=== PATIENT | female | born 1965 | race Caucasian/White ===

== ENCOUNTER → 2016-09-21 | Outpatient (CLI) | payer MEDICAID ==
[~2016-09-21] MED LIST: ALBU18HF INH; BUDE10.22 INH; FOLI-17 PO; LORA-446 PO; MULT-484 PO; OXYC5TAB3 PO; PANT20TA3 PO; SERT50TA PO; THIA100T6 PO; VENL75TA2 PO
== END | disposition home or self-care (01) ==
LOC: CFH 16:14
PROVIDERS: ATTEND Internal Medicine Pulmonary Disease
DX: R91.1 Solitary pulmonary nodule (principal); I25.10 Atherosclerotic heart disease of native coronary artery without angina pectoris
CPT/HCPCS: 71250

== ENCOUNTER 2017-06-07 03:08 | Inpatient (IN) | payer MEDICAID ==
[~2017-06-07] VITALS: Ht 165.1 cm; Wt 70.7 kg
[2017-06-07] MEDS ORDERED: NITROGLYCERIN SINGLE TAB 0.4 MG SL ONE (03:26)
[2017-06-07] MEDS ORDERED: NITROGLYCERIN SINGLE TAB 0.4 MG SL PRN (03:30)
[2017-06-07] MEDS ORDERED: SODIUM CHLORIDE FLUSH 10ML SYR IVF ONE (03:30)
[2017-06-07] MEDS ORDERED: ONDANSETRON 2MG/ML, 2ML IVPush ONE (03:30)
[2017-06-07] MEDS ORDERED: MORPHINE SULFATE 4 MG/ML, 1ML IVPush PRN (03:30)
[2017-06-07 03:54] LABS: BASOPHILS # (AUTO) 0.04 x10^3/uL (0-0.1); BASOPHILS % (AUTO) 1 % (0-1); EOSINOPHILS # (AUTO) 0.41 x10^3/uL (0-0.4); EOSINOPHILS % (AUTO) 6 % (1-7); LYMPHOCYTES % (AUTO) 39 % (22-44); MD NO; MEAN CORPUSCULAR HEMOGLOBIN 36.3 pg (27.0-34.8); MEAN CORPUSCULAR HGB CONC 34.3 g/dL (32.4-35.8); MEAN CORPUSCULAR VOLUME 105.9 fL (80-100); MEAN PLATELET VOLUME 7.7 fL (7.4-10.4); MONOCYTES # (AUTO) 0.37 x10^3/uL (0.2-0.8); MONOCYTES % (AUTO) 5 % (2-9); NEUTROPHILS # (AUTO) 3.33 x10^3/uL (1.8-6.8); NEUTROPHILS % (AUTO) 49 % (42-75); PLATELET COUNT 203 x10^3/uL (130-400); RED CELL DISTRIBUTION WIDTH 13.6 % (9.6-15.2)
[2017-06-07 03:58] LABS: INTERNATIONAL NORMALIZED RATIO 0.95 (0.93-1.1); PROTHROMBIN TIME 9.9 Seconds (9.6-11.5)
[2017-06-07 04:02] LABS: ALANINE AMINOTRANSFERASE 30 U/L (12-78); ALBUMIN 3.2 g/dL (3.4-5.0); ANION GAP 10 mmol/L (5-15); CALCIUM 7.9 mg/dL (8.5-10.1); CHLORIDE 100 mmol/L (98-107); CREATININE 0.65 mg/dL (0.55-1.02)
[2017-06-07 04:06] LABS: ALKALINE PHOSPHATASE 91 U/L (45-117); BILIRUBIN,TOTAL 0.3 mg/dL (0.2-1.0); TOTAL PROTEIN 7.1 g/dL (6.4-8.2); TROPONIN I < 0.015 ng/mL (0.000-0.045)
[2017-06-07] MEDS: SODIUM CHLORIDE 0.9% 1,000 ML IV SCH ×2 (05:55→15:36)
[2017-06-07] MEDS ORDERED: ACETAMINOPHEN 325 MG TABLET PO PRN (06:00)
[2017-06-07] MEDS ORDERED: OXYcodone IR 5MG TABLET PO PRN (06:00)
[2017-06-07] MEDS ORDERED: NICOTINE 7 MG/24 HR PATCH.TD24 TD SCH (06:00)
[2017-06-07] MEDS ORDERED: ALBUTEROL/IPRATROPIUM 2.5MG/0.5MG, 3 ML NPPB SCH (06:00)
[2017-06-07] MEDS ORDERED: POLYETHYLENE GLYCOL 17 GM PACKET PO PRN (06:00)
[2017-06-07] MEDS ORDERED: morphine SULFATE 10 MG/ML, 1ML IVPush PRN (06:00)
[2017-06-07] MEDS ORDERED: BISACODYL 10 MG SUPP PR PRN (06:00)
[2017-06-07] MEDS ORDERED: ASPIRIN 81 MG TABLET EC PO SCH (06:00)
[2017-06-07] MEDS ORDERED: hydrALAzine 20 MG/ML, 1ML IVPush PRN (06:00)
[2017-06-07] MEDS ORDERED: ENALAPRILAT 1.25 MG/ML, 2ML IVPush PRN (06:00)
[2017-06-07] MEDS: HEPARIN 5,000 UNITS/ML, 1ML SQ SCH ×2 (06:09→14:00)
[2017-06-07] MEDS: ONDANSETRON 2MG/ML, 2ML IVPush PRN ×2 (06:09→13:35)
[2017-06-07] MEDS: GABAPENTIN 100 MG CAPSULE PO SCH ×2 (06:09→14:49)
[2017-06-07 06:20] VITALS: BP 108/65
[2017-06-07 06:33] LABS: HEMOGLOBIN A1C 5.6 % (4.2-6.3)
[2017-06-07 06:40] LABS: FREE T4 (FREE THYROXINE) 0.79 ng/dL (0.76-1.46); THYROID STIMULATING HORMONE 2.93 mIU/L (0.358-3.740)
[2017-06-07 06:48] LABS: MICROSCOPIC NOT IND
[2017-06-07 06:50] LABS: CULTURE INDICATED? NO
[2017-06-07 06:53] LABS: AMPHETAMINE SCREEN, URINE Negative (Negative); BARBITURATE SCREEN, URINE Negative (Negative); BENZODIAZEPINE SCREEN, URINE Negative (Negative); CANNABINOID SCREEN, URINE Negative (Negative); COCAINE SCREEN, URINE Negative (Negative); METHADONE SCREEN, URINE Negative (Negative); OPIATE SCREEN, URINE Negative (Negative)
[2017-06-07] MEDS ORDERED: [UNRECOGNIZED DRUG - CODE] PO (06:57)
[2017-06-07 08:00] LABS: TROPONIN I < 0.015 ng/mL (0.000-0.045)
[2017-06-07] MEDS ORDERED: REGADENOSON 0.4 MG/5 ML SYRINGE ONE (08:50)
[2017-06-07] MEDS ORDERED: FOLIC ACID 1 MG TABLET PO SCH (09:00)
[2017-06-07] MEDS ORDERED: THIAMINE 100MG TABLET PO SCH (09:00)
[2017-06-07] MEDS ORDERED: SERTRALINE 50MG TABLET PO SCH (09:00)
[2017-06-07] MEDS ORDERED: ERGOCALCIFEROL 50,000 UNIT CAPSULE PO SCH (09:00)
[2017-06-07] MEDS ORDERED: FLUTICASONE/VILANTEROL 100-25MCG/INH INH SCH (09:00)
[2017-06-07] MEDS ORDERED: SENNA/DOCUSATE TABLET PO SCH (09:00)
[2017-06-07] MEDS ORDERED: MULTIVITAMINS/MINERALS TABLET PO SCH (09:00)
[2017-06-07] MEDS ORDERED: VENLAFAXINE 75 MG CAP ER PO SCH (09:00)
[2017-06-07] MEDS ORDERED: PANTOPRAZOLE 20MG TABLET PO SCH (09:00)
[2017-06-07 11:03] VITALS: BP 145/94
[2017-06-07 12:38] VITALS: BP 138/88
[2017-06-07 14:06] LABS: TROPONIN I < 0.015 ng/mL (0.000-0.045)
[2017-06-08] MEDS ORDERED: ALBUTEROL/IPRATROPIUM 2.5MG/0.5MG, 3 ML NPPB PRN (11:00)
== END 2017-06-07 15:57 | disposition home or self-care (01) | DRG 313 ==
LOC: ED 04:38 → EDIP 04:41 → 5SO 05:40 → DCLOUNGE 15:49
PROVIDERS: ADMIT Internal Medicine; ATTEND Internal Medicine
DX: R07.89 Other chest pain (principal); I25.2 Old myocardial infarction; E44.0 Moderate protein-calorie malnutrition; K86.0 Alcohol-induced chronic pancreatitis; D75.89 Other specified diseases of blood and blood-forming organs; F10.20 Alcohol dependence, uncomplicated; F17.200 Nicotine dependence, unspecified, uncomplicated; F32.9 Major depressive disorder, single episode, unspecified; J44.9 Chronic obstructive pulmonary disease, unspecified; K58.9 Irritable bowel syndrome, unspecified; M81.0 Age-related osteoporosis without current pathological fracture; Z68.25 Body mass index [BMI] 25.0-25.9, adult; Z79.82 Long term (current) use of aspirin; Z82.49 Family history of ischemic heart disease and other diseases of the circulatory system
CPT/HCPCS: 36415; 71045; 78452; 80053; 80307; 81003; 82306; 82607; 83036; 83690; 83735; 83880; 84439; 84443; 84484; 85025; 85610; 85730; 93005; 93017; 93306; 99285; J1644; J2405; J2785; A9502; C9898; J7030

== ENCOUNTER → 2017-07-02 | Outpatient (CLI) | payer MEDICAID ==
[~2017-07-02] MED LIST changes: +[UNRECOGNIZED DRUG - CODE] PO
== END | disposition home or self-care (01) ==
LOC: CFH 16:03
PROVIDERS: ATTEND Internal Medicine Gastroenterology
DX: K21.9 Gastro-esophageal reflux disease without esophagitis (principal); J45.909 Unspecified asthma, uncomplicated; F17.200 Nicotine dependence, unspecified, uncomplicated; R91.8 Other nonspecific abnormal finding of lung field
CPT/HCPCS: 71046

== ENCOUNTER → 2017-07-13 | Outpatient (CLI) | payer MEDICAID | LOC: EDSTATUS 06-24 10:30 → CFH 08:11 | PROVIDERS: ATTEND Internal Medicine | DX: Z13.820 Encounter for screening for osteoporosis (principal); M81.0 Age-related osteoporosis without current pathological fracture; N95.9 Unspecified menopausal and perimenopausal disorder | CPT/HCPCS: 77080 ==

== ENCOUNTER 2017-07-15 16:16 | Inpatient (IN) | payer MEDICAID ==
[~2017-07-15] VITALS: Ht 165.1 cm; Wt 68.8 kg
[2017-07-15] MEDS ORDERED: MAALOX/HYOSCYAMINE/LIDOCAINE 45 ML BTL PO ONE (16:30)
[2017-07-15] MEDS ORDERED: MAALOX/HYOSCYAMINE/LIDOCAINE 45 ML BTL ONE (16:43)
[2017-07-15] MEDS ORDERED: OMNIPAQUE 350 MG/ML, 150 ML BOTTLE ONE (17:36)
[2017-07-15] MEDS ORDERED: ZOLP-413 PO (19:40)
[2017-07-15 21:27] VITALS: BP 122/75
[2017-07-15 22:19] LABS: CLOSTRIDIUM DIFFICILE ANTIGEN NEGATIVE; CLOSTRIDIUM DIFFICILE TOXIN NEGATIVE (Negative)
[2017-07-15] MEDS ORDERED: ONDANSETRON 2MG/ML, 2ML IVPush PRN (23:00)
[2017-07-15] MEDS ORDERED: ALBUTEROL SULFATE 2.5 MG/3 ML NPPB PRN (23:00)
[2017-07-15] MEDS ORDERED: ACETAMINOPHEN 325 MG TABLET PO PRN (23:00)
[2017-07-15] MEDS ORDERED: morphine SULFATE 10 MG/ML, 1ML IVPush PRN (23:00)
[2017-07-15] MEDS ORDERED: hydrALAzine 20 MG/ML, 1ML IVPush PRN (23:00)
[2017-07-15] MEDS: SERTRALINE 50MG TABLET PO SCH (23:28)
[2017-07-15] MEDS: HEPARIN 5,000 UNITS/ML, 1ML SQ SCH (23:28)
[2017-07-15] MEDS: MAALOX/HYOSCYAMINE/LIDOCAINE 45 ML BTL PO PRN (23:30)
[2017-07-15] MEDS: ZOLPIDEM 5MG TABLET PO SCH (23:38)
[2017-07-15 23:59] LABS: BASOPHILS # (AUTO) 0.05 x10^3/uL (0-0.1); BASOPHILS % (AUTO) 1 % (0-1); EOSINOPHILS # (AUTO) 0.25 x10^3/uL (0-0.4); EOSINOPHILS % (AUTO) 3 % (1-7); LYMPHOCYTES # (AUTO) 1.59 x10^3/uL (1-3.4); LYMPHOCYTES % (AUTO) 20 % (22-44); MD NO; MEAN CORPUSCULAR HEMOGLOBIN 36.1 pg (27.0-34.8); MEAN CORPUSCULAR HGB CONC 33.7 g/dL (32.4-35.8); MEAN CORPUSCULAR VOLUME 106.9 fL (80-100); MONOCYTES # (AUTO) 0.83 x10^3/uL (0.2-0.8); MONOCYTES % (AUTO) 10 % (2-9); NEUTROPHILS # (AUTO) 5.28 x10^3/uL (1.8-6.8); NEUTROPHILS % (AUTO) 66 % (42-75); PLATELET COUNT 180 x10^3/uL (130-400); RED CELL DISTRIBUTION WIDTH 13.8 % (9.6-15.2)
[2017-07-16 00:08] LABS: ALANINE AMINOTRANSFERASE 28 U/L (12-78); ALBUMIN 3.3 g/dL (3.4-5.0); ANION GAP 11 mmol/L (5-15); CALCIUM 8.7 mg/dL (8.5-10.1); CHLORIDE 106 mmol/L (98-107); CREATININE 0.53 mg/dL (0.55-1.02)
[2017-07-16 00:11] LABS: ALKALINE PHOSPHATASE 74 U/L (45-117); BILIRUBIN,TOTAL 0.7 mg/dL (0.2-1.0); TOTAL PROTEIN 6.7 g/dL (6.4-8.2)
[2017-07-16 00:14] LABS: TROPONIN I < 0.015 ng/mL (0.000-0.045)
[2017-07-16] MEDS: D5%-0.45% NACL 1,000 ML IV SCH ×3 (01:02→21:16)
[2017-07-16 03:57] VITALS: BP 139/73
[2017-07-16 05:13] LABS: ALBUMIN 3.1 g/dL (3.4-5.0); CALCIUM 8.6 mg/dL (8.5-10.1); CHLORIDE 107 mmol/L (98-107)
[2017-07-16 05:16] LABS: BASOPHILS # (AUTO) 0.05 x10^3/uL (0-0.1); BASOPHILS % (AUTO) 1 % (0-1); EOSINOPHILS % (AUTO) 5 % (1-7); LYMPHOCYTES # (AUTO) 1.64 x10^3/uL (1-3.4); LYMPHOCYTES % (AUTO) 27 % (22-44); MD NO; MEAN CORPUSCULAR HEMOGLOBIN 36.5 pg (27.0-34.8); MEAN CORPUSCULAR HGB CONC 34.4 g/dL (32.4-35.8); MEAN CORPUSCULAR VOLUME 105.9 fL (80-100); MEAN PLATELET VOLUME 7.7 fL (7.4-10.4); MONOCYTES # (AUTO) 0.63 x10^3/uL (0.2-0.8); MONOCYTES % (AUTO) 10 % (2-9); NEUTROPHILS # (AUTO) 3.52 x10^3/uL (1.8-6.8); NEUTROPHILS % (AUTO) 57 % (42-75); PLATELET COUNT 178 x10^3/uL (130-400); RED BLOOD COUNT 3.73 x10^6/uL (3.82-5.3); RED CELL DISTRIBUTION WIDTH 13.9 % (9.6-15.2)
[2017-07-16 05:17] LABS: ALANINE AMINOTRANSFERASE 26 U/L (12-78); ALKALINE PHOSPHATASE 73 U/L (45-117); BILIRUBIN,TOTAL 0.7 mg/dL (0.2-1.0); CREATININE 0.56 mg/dL (0.55-1.02); TOTAL PROTEIN 6.5 g/dL (6.4-8.2)
[2017-07-16 05:23] LABS: TROPONIN I < 0.015 ng/mL (0.000-0.045)
[2017-07-16 06:12] LABS: ANION GAP 7 mmol/L (5-15)
[2017-07-16 07:10] VITALS: BP 138/81
[2017-07-16] MEDS: HEPARIN 5,000 UNITS/ML, 1ML SQ SCH ×3 (07:30→23:30)
[2017-07-16] MEDS ORDERED: SERTRALINE 50MG TABLET PO SCH (09:00)
[2017-07-16] MEDS: FLUTICASONE/VILANTEROL 100-25MCG/INH INH SCH (09:00)
[2017-07-16] MEDS: MAALOX/HYOSCYAMINE/LIDOCAINE 45 ML BTL PO PRN ×2 (09:38→17:15)
[2017-07-16] MEDS: PANTOPRAZOLE 40 MG IV IVPush SCH (09:43)
[2017-07-16 12:56] VITALS: BP 108/73
[2017-07-16 19:55] VITALS: BP 113/71
[2017-07-16] MEDS: ZOLPIDEM 5MG TABLET PO SCH ×2 (21:10→21:18)
[2017-07-16] MEDS: SERTRALINE 50MG TABLET PO SCH (21:15)
[2017-07-17 02:09] VITALS: BP 143/82
[2017-07-17] MEDS: MAALOX/HYOSCYAMINE/LIDOCAINE 45 ML BTL PO PRN ×2 (02:13→08:02)
[2017-07-17] MEDS: D5%-0.45% NACL 1,000 ML IV SCH (06:20)
[2017-07-17 07:29] VITALS: BP 141/100
[2017-07-17] MEDS: HEPARIN 5,000 UNITS/ML, 1ML SQ SCH (07:30)
[2017-07-17] MEDS: PANTOPRAZOLE 40 MG IV IVPush SCH (08:02)
[2017-07-17] MEDS: FLUTICASONE/VILANTEROL 100-25MCG/INH INH SCH (08:02)
== END 2017-07-17 09:45 | disposition home or self-care (01) | DRG 392 ==
LOC: ED 18:29 → OBSVTOIN 20:01 → EDIP 20:01 → 3NW 20:56
PROVIDERS: ADMIT Hospitalist; ATTEND Hospitalist
DX: R10.13 Epigastric pain (principal); K22.2 Esophageal obstruction; K86.0 Alcohol-induced chronic pancreatitis; F17.210 Nicotine dependence, cigarettes, uncomplicated; F41.9 Anxiety disorder, unspecified; J44.9 Chronic obstructive pulmonary disease, unspecified; K21.9 Gastro-esophageal reflux disease without esophagitis; K58.9 Irritable bowel syndrome, unspecified; Z66 Do not resuscitate; Z82.49 Family history of ischemic heart disease and other diseases of the circulatory system
CPT/HCPCS: 36415; 71045; 74220; 80053; 83690; 83735; 84100; 84484; 85025; 87324; 94640; 99285; J1644; J7613; Q9967; C9113

== ENCOUNTER 2018-06-13 16:36 | Emergency (ER) | payer MEDICAID ==
[~2018-06-13] VITALS: Ht 165.1 cm; Wt 66.3 kg
[~2018-06-13 16:36] MED LIST changes: -THIA100T6 PO; +THIA100T67 PO; +ZOLP-413 PO
--- NOTE | 2018-06-13 18:57 | NUR ---
185: PER REPORT FROM ENRIQUETA SERRANO AND ENRIQUETA ZAVALA PT. HAD JUST ARRIVED IN ROOM FROM [facility]. MULTIPLE C/O HIP PAIN, COREY, "BUMPS" TO BACK OF EAR. DR. FIGUEROA WAS AT BS TO EVAL PT. AND DISCUSS POC. CALL LIGHT IN REACH. CONTINUOUS PULSE OX AND B/P MONITORS PLACED. ALL SAFETY MEASURES OBSERVED.
[2018-06-13] MEDS ORDERED: OXYcodone/APAP 10/325MG TABLET PO ONE (19:00)
[2018-06-13] MEDS ORDERED: OXYcodone/APAP 10/325MG TABLET ONE (19:13)
[2018-06-13 19:53] VITALS: BP 104/75
== END 2018-06-13 19:54 | disposition home or self-care (01) ==
LOC: ED 19:45
DX: M54.32 Sciatica, left side (principal); J44.9 Chronic obstructive pulmonary disease, unspecified; M25.552 Pain in left hip
CPT/HCPCS: 99283

== ENCOUNTER 2018-06-22 23:22 | Emergency (ER) | payer MEDICAID ==
[~2018-06-22] VITALS: Ht 165.1 cm; Wt 66.1 kg
[2018-06-23] MEDS ORDERED: ONDANSETRON ODT 4 MG ONE (00:58)
[2018-06-23] MEDS ORDERED: KETOROLAC 30 MG/1 ML ONE (00:58)
[2018-06-23] MEDS ORDERED: ONDANSETRON ODT 4 MG PO ONE (01:00)
[2018-06-23] MEDS ORDERED: HYDROmorphone 1 MG/ML, 1ML ONE (01:00)
[2018-06-23] MEDS ORDERED: KETOROLAC 30 MG/1 ML IM ONE (01:00)
[2018-06-23] MEDS ORDERED: HYDROmorphone 2 MG/ML, 1ML IM ONE (01:00)
--- NOTE | 2018-06-23 01:12 | NUR ---
PT AMBULATED FROM LOBBY TO ROOM WITH STEADY GAIT. PT MEDICATED PER MAR FOR PAIN AND NAUSEA.
[2018-06-23 02:05] VITALS: BP 125/78
--- NOTE | 2018-06-23 02:05 | NUR ---
Patient given discharge instructions and they have confirmed that they understand the instructions. Patient ambulatory with steady gait.
== END 2018-06-23 02:07 | disposition home or self-care (01) ==
LOC: ED 06-23 00:29
DX: M54.32 Sciatica, left side (principal); J44.9 Chronic obstructive pulmonary disease, unspecified; Z87.19 Personal history of other diseases of the digestive system
CPT/HCPCS: 96372; 99283; J1170; J1885; Q0162

== ENCOUNTER 2018-07-10 05:01 | Emergency (ER) | payer MEDICAID ==
[~2018-07-10] VITALS: Ht 165.1 cm; Wt 66.5 kg
--- NOTE | 2018-07-10 06:22 | NUR ---
PA AT BEDSIDE FOR ASSESSMENT.
[2018-07-10 06:24] VITALS: BP 121/70
== END 2018-07-10 06:33 | disposition home or self-care (01) ==
LOC: ED 06:22
DX: M35.2 Behcet's disease (principal); J44.9 Chronic obstructive pulmonary disease, unspecified
CPT/HCPCS: 99283

== ENCOUNTER → 2018-08-22 | Outpatient (CLI) | payer MEDICAID | END | disposition home or self-care (01) | LOC: CVU 07:18 | PROVIDERS: ATTEND Internal Medicine | DX: I70.293 Other atherosclerosis of native arteries of extremities, bilateral legs (principal); F17.210 Nicotine dependence, cigarettes, uncomplicated | CPT/HCPCS: 93922; 93925 ==

== ENCOUNTER 2019-09-06 07:37 | Emergency (ER) | payer MEDICAID ==
[~2019-09-06] VITALS: Ht 165.1 cm; Wt 66.5 kg
--- NOTE | 2019-09-06 08:13 | NUR ---
PT CAME IN CO OF COUGH AND "LOW BP". SAID HER BP WAS "115/42" AT HOME. PT ALSO STATES SHE IS ON ROUND 3 OF ZITHROMAX WHICH HASNT BEEN HELPINGHER COUGH. COVID SWABBED YESTERDAY.
--- NOTE | 2019-09-06 08:31 | NUR ---
PROVIDER HAS YET TO SEE. CHARGE NURSE NOTIFIED
--- NOTE | 2019-09-06 08:59 | NUR ---
PT AMBULATED WITH STEADY GATE TO BATHROOM
[2019-09-06 09:42] LABS: BASOPHILS # (AUTO) 0.04 x10^3/uL (0-0.1); BASOPHILS % (AUTO) 1 % (0-1); EOSINOPHILS # (AUTO) 0.02 x10^3/uL (0-0.4); EOSINOPHILS % (AUTO) 0 % (1-7); LYMPHOCYTES # (AUTO) 2.69 x10^3/uL (1-3.4); LYMPHOCYTES % (AUTO) 36 % (22-44); MD NO; MEAN CORPUSCULAR HEMOGLOBIN 37.5 pg (27.0-34.8); MEAN CORPUSCULAR HGB CONC 34.1 g/dL (32.4-35.8); MEAN CORPUSCULAR VOLUME 109.8 fL (80-100); MEAN PLATELET VOLUME 7.2 fL (7.4-10.4); MONOCYTES # (AUTO) 0.87 x10^3/uL (0.2-0.8); MONOCYTES % (AUTO) 12 % (2-9); NEUTROPHILS # (AUTO) 3.78 x10^3/uL (1.8-6.8); NEUTROPHILS % (AUTO) 51 % (42-75); PLATELET COUNT 126 x10^3/uL (130-400); RED BLOOD COUNT 3.62 x10^6/uL (3.82-5.3); RED CELL DISTRIBUTION WIDTH 15.9 % (9.6-15.2)
[2019-09-06 09:53] LABS: ALBUMIN 3.5 g/dL (3.4-5.0); ANION GAP 10 mmol/L (5-15); CALCIUM 9.1 mg/dL (8.5-10.1); CHLORIDE 107 mmol/L (98-107); CREATININE 0.65 mg/dL (0.55-1.02)
[2019-09-06 10:33] VITALS: BP 103/55
--- NOTE | 2019-09-06 10:33 | NUR ---
PT UP FOR RECHECK. PT RESTING IN [facility]. NAD. VSS.
== END 2019-09-06 11:01 | disposition home or self-care (01) ==
LOC: ED 08:04
DX: J45.41 Moderate persistent asthma with (acute) exacerbation (principal); M19.90 Unspecified osteoarthritis, unspecified site; F17.200 Nicotine dependence, unspecified, uncomplicated
CPT/HCPCS: 36415; 71045; 80048; 82040; 85025; 93005; 99285

== ENCOUNTER 2019-10-23 16:10 | Emergency (ER) | payer MEDICAID ==
[~2019-10-23] VITALS: Ht 165.1 cm; Wt 63.8 kg
--- NOTE | 2019-10-23 16:32 | NUR ---
TASK RN: PT AMBULATORY TO ROOM FROM [facility], C/O INCREASING SOB OVER PAST WEEK WITH FEVER OF 102. HX OF COPD ASTHMA AND STATES THAT HER INH AND NEBS HAVE NOT BEEN HELPING. PT ON ALL MONITORS, VSS AND NAD NOTED. PT ABLE TO CARRY ON CONVERSATION WITH THIS RN WITH NO S/S OF SOB. CALL LIGHT W/I REACH. AWAITING PROVIDER EVAL.
[2019-10-23] MEDS ORDERED: ALBUTEROL/IPRATROPIUM 2.5MG/0.5MG, 3 ML NPPB ONE (17:00)
[2019-10-23] MEDS ORDERED: ALBUTEROL/IPRATROPIUM 2.5MG/0.5MG, 3 ML ONE (17:08)
--- NOTE | 2019-10-23 17:16 | NUR ---
BREATHING TREATMENT SET UP FOR PT. RESP EVEN AND UNLABORED, VSS, NADN.
[2019-10-23 17:41] VITALS: BP 105/71
--- NOTE | 2019-10-23 17:47 | NUR ---
PT REPORTS RELIEF OF SOB AFTER BREATHING TREATMENT.
--- NOTE | 2019-10-23 18:01 | NUR ---
Patient given discharge instructions and they have confirmed that they understand the instructions. Patient ambulatory with steady gait.
== END 2019-10-23 18:02 | disposition home or self-care (01) ==
LOC: ED 17:49
DX: J44.1 Chronic obstructive pulmonary disease with (acute) exacerbation (principal); J45.909 Unspecified asthma, uncomplicated; M19.90 Unspecified osteoarthritis, unspecified site
CPT/HCPCS: 71045; 94640; 99283; J7512

== ENCOUNTER 2019-11-19 15:33 | Emergency (ER) | payer MEDICAID ==
[~2019-11-19] VITALS: Ht 165.1 cm; Wt 74.0 kg
[2019-11-19 15:37] VITALS: BP 124/82
--- NOTE | 2019-11-19 16:04 | NUR ---
recall feature used to extract pt history as pt refuses to answer any past medical hx. pt states "i have tummy issues and you can call my gi doctor to find out specifics." pt states she is here for nausea and vomiting for the past "week or so". denies any abd pain. last bm 2 days ago described as hard pt states " it really hurt my hiney" pt in room placed on o2 and nibp monitoring. awaiting md fisher.
[2019-11-19 17:03] LABS: MEAN CORPUSCULAR HEMOGLOBIN 37.5 pg (27.0-34.8); MEAN CORPUSCULAR HGB CONC 33.8 g/dL (32.4-35.8); MEAN CORPUSCULAR VOLUME 111.1 fL (80-100); MEAN PLATELET VOLUME 7.5 fL (7.4-10.4); PLATELET COUNT 275 x10^3/uL (130-400); RED BLOOD COUNT 3.41 x10^6/uL (3.82-5.3); RED CELL DISTRIBUTION WIDTH 14.3 % (9.6-15.2)
[2019-11-19 17:12] LABS: ALANINE AMINOTRANSFERASE 47 U/L (12-78); ALBUMIN 3.1 g/dL (3.4-5.0); ANION GAP 8 mmol/L (5-15); CALCIUM 8.5 mg/dL (8.5-10.1); CHLORIDE 107 mmol/L (98-107); CREATININE 0.55 mg/dL (0.55-1.02)
[2019-11-19 17:14] LABS: ALKALINE PHOSPHATASE 79 U/L (45-117); BILIRUBIN,TOTAL 0.2 mg/dL (0.2-1.0); TOTAL PROTEIN 6.7 g/dL (6.4-8.2)
[2019-11-19 17:26] LABS: MICROSCOPIC NOT IND
[2019-11-19] MEDS ORDERED: OMNIPAQUE 350 MG/ML, 100ML BOTTLE ONE (17:48)
[2019-11-19 18:02] LABS: BASOPHILS # (AUTO) 0.09 x10^3/uL (0-0.1); BASOPHILS % (AUTO) 2 % (0-1); EOSINOPHILS # (AUTO) 0.22 x10^3/uL (0-0.4); EOSINOPHILS % (AUTO) 5 % (1-7); LYMPHOCYTES # (AUTO) 2.18 x10^3/uL (1-3.4); LYMPHOCYTES % (AUTO) 47 % (22-44); MD SCAN; MONOCYTES # (AUTO) 0.78 x10^3/uL (0.2-0.8); MONOCYTES % (AUTO) 17 % (2-9); NEUTROPHILS # (AUTO) 1.32 x10^3/uL (1.8-6.8); NEUTROPHILS % (AUTO) 29 % (42-75)
== END 2019-11-19 18:37 | disposition home or self-care (01) ==
LOC: ED 17:11
DX: K85.20 Alcohol induced acute pancreatitis without necrosis or infection (principal); R11.0 Nausea; R10.31 Right lower quadrant pain; J44.9 Chronic obstructive pulmonary disease, unspecified; K21.9 Gastro-esophageal reflux disease without esophagitis
CPT/HCPCS: 36415; 74177; 80053; 81003; 83690; 85025; 99285; Q9967

== ENCOUNTER 2020-02-21 03:26 | Emergency (ER) | payer MEDICAID ==
[~2020-02-21] VITALS: Ht 165.1 cm; Wt 62.9 kg
[~2020-02-21 03:26] MED LIST changes: -PANT20TA3 PO; +PANT20TA4 PO
[2020-02-21 03:33] VITALS: BP 134/75
[2020-02-21] MEDS ORDERED: SODIUM CHLORIDE 0.9% 1,000ML IVBOLUS ONE (04:00)
[2020-02-21] MEDS ORDERED: SODIUM CHLORIDE FLUSH 10ML SYR IVF ONE (04:00)
[2020-02-21 04:27] LABS: BASOPHILS % (AUTO) 2 % (0-1); EOSINOPHILS % (AUTO) 3 % (1-7); LYMPHOCYTES % (AUTO) 52 % (22-44); MEAN CORPUSCULAR HGB CONC 34.8 g/dL (32.4-35.8); MEAN PLATELET VOLUME 7.4 fL (7.4-10.4); MONOCYTES % (AUTO) 8 % (2-9); NEUTROPHILS % (AUTO) 35 % (42-75); PLATELET COUNT 124 x10^3/uL (130-400); RED BLOOD COUNT 3.71 x10^6/uL (3.82-5.3); RED CELL DISTRIBUTION WIDTH 14.7 % (9.6-15.2)
[2020-02-21 04:28] LABS: ALANINE AMINOTRANSFERASE 101 U/L (12-78); ALBUMIN 3.4 g/dL (3.4-5.0); ANION GAP 8 mmol/L (5-15); CALCIUM 8.6 mg/dL (8.5-10.1); CHLORIDE 106 mmol/L (98-107); CREATININE 0.55 mg/dL (0.55-1.02)
[2020-02-21 04:30] LABS: ALKALINE PHOSPHATASE 121 U/L (45-117); BILIRUBIN,TOTAL 0.5 mg/dL (0.2-1.0); TOTAL PROTEIN 7.2 g/dL (6.4-8.2)
[2020-02-21 04:50] LABS: AMPHETAMINE SCREEN, URINE Negative (Negative); BARBITURATE SCREEN, URINE Negative (Negative); BENZODIAZEPINE SCREEN, URINE Negative (Negative); CANNABINOID SCREEN, URINE Negative (Negative); COCAINE SCREEN, URINE Negative (Negative); METHADONE SCREEN, URINE Negative (Negative); OPIATE SCREEN, URINE Negative (Negative)
[2020-02-21 05:04] LABS: MD SCAN
--- NOTE | 2020-02-21 05:13 | NUR ---
job specification writer went to go recheck patient, patient had ripped out IV and was dressed. Patient stated that she "just wasnt happy with the care here and wanted to check herself out and didn't want to wait for her test results." Pt then walked out of the ER. Provider aware.
== END 2020-02-21 05:19 | disposition left against medical advice (07) ==
LOC: ED 05:00
DX: B34.9 Viral infection, unspecified (principal); R11.2 Nausea with vomiting, unspecified; R94.31 Abnormal electrocardiogram [ECG] [EKG]; R10.9 Unspecified abdominal pain; R50.9 Fever, unspecified; J44.9 Chronic obstructive pulmonary disease, unspecified
CPT/HCPCS: 36415; 71045; 80053; 80307; 83690; 85025; 93005; 96360; 99285; J7030

== ENCOUNTER 2020-05-23 19:19 | Emergency (ER) | payer MEDICAID ==
[~2020-05-23] VITALS: Ht 165.1 cm; Wt 60.8 kg
[2020-05-23] MEDS ORDERED: ONDANSETRON 2MG/ML, 2ML ONE (19:55)
[2020-05-23] MEDS ORDERED: MORPHINE SULFATE 4 MG/ML, 1ML ONE ×2 (19:55→20:38)
[2020-05-23] MEDS: MORPHINE SULFATE 4 MG/ML, 1ML IVPush PRN ×2 (19:58→20:39)
[2020-05-23] MEDS ORDERED: SODIUM CHLORIDE 0.9% 1,000ML IVBOLUS ONE (20:00)
[2020-05-23] MEDS ORDERED: ONDANSETRON 2MG/ML, 2ML IVPush ONE (20:00)
[2020-05-23] MEDS ORDERED: SODIUM CHLORIDE FLUSH 10ML SYR IVF ONE (20:00)
[2020-05-23 20:30] LABS: ALANINE AMINOTRANSFERASE 47 U/L (12-78); ALBUMIN 3.3 g/dL (3.4-5.0); ANION GAP 9 mmol/L (5-15); CHLORIDE 109 mmol/L (98-107); CREATININE 0.58 mg/dL (0.55-1.02)
--- NOTE | 2020-05-23 20:30 | NUR ---
PT C/O OF PERSISTENT PAIN AND MINIMAL RELIEF FROM ACID POLYMERIZATION OPERATOR, PT REQUESTING ADDITIONAL PAIN MEDICATION. MEDICATED PER EMAR. PT DENIES ANY ADDITIONAL NEEDS AT THIS TIME. CALL LIGHT AND PERSONAL BELONGINGS WITHIN REACH.
[2020-05-23 20:33] LABS: ALKALINE PHOSPHATASE 95 U/L (45-117); BILIRUBIN,TOTAL 0.3 mg/dL (0.2-1.0); TOTAL PROTEIN 7.4 g/dL (6.4-8.2)
[2020-05-23 20:34] LABS: MEAN CORPUSCULAR HGB CONC 34.7 g/dL (32.4-35.8); PLATELET COUNT 120 x10^3/uL (130-400); RED BLOOD COUNT 3.59 x10^6/uL (3.82-5.3)
--- NOTE | 2020-05-23 20:50 | NUR ---
PT TO CT
[2020-05-23] MEDS ORDERED: DOCU100C33 PO (20:59)
[2020-05-23] MEDS ORDERED: METH750T2 PO (20:59)
[2020-05-23] MEDS ORDERED: ATOR20TA37 PO (20:59)
[2020-05-23] MEDS ORDERED: BACL20TA PO (20:59)
[2020-05-23] MEDS ORDERED: PARO40TA3 PO (20:59)
[2020-05-23 21:01] LABS: MD YES
--- NOTE | 2020-05-23 21:02 | NUR ---
PT RETURNED FROM CT, OT SITTING UPRIGHT ON ON CLARE [place], VSS. PT DENIES ANY NEEDS AT THIS TIME AND REPORTS "SOME DECREASE IN PAIN" FOLLOWING SHOE PACKER.
[2020-05-23] MEDS ORDERED: OMNIPAQUE 350 MG/ML, 100ML BOTTLE ONE (21:03)
[2020-05-23 21:05] LABS: EOS#(MANUAL) 0.54 x10^3/uL (0.0-0.4); EOS% (MANUAL) 9 % (1-7); LYMPH#(MANUAL) 2.82 x10^3/uL (1-3.4); LYMPHS% (MANUAL) 47 % (22-44); MONOS#(MANUAL) 0.42 x10^3/uL (0.3-2.7); MONOS% (MANUAL) 7 % (2-9); SEG#(MANUAL) 2.22 x10^3/uL (1.8-6.8); SEGS% (MANUAL) 37 % (42-75)
[2020-05-23 21:08] LABS: <PLATELET ESTIMATE> DECREASED; <PLT MORPHOLOGY> NORMAL PLT MORPH
[2020-05-23 21:35] VITALS: BP 124/72
--- NOTE | 2020-05-23 21:36 | NUR ---
Patient given discharge instructions and they have confirmed that they understand the instructions. Patient ambulatory with steady gait.
== END 2020-05-23 21:37 | disposition home or self-care (01) ==
LOC: ED 20:30
DX: K59.00 Constipation, unspecified (principal); R10.84 Generalized abdominal pain; R11.2 Nausea with vomiting, unspecified; R53.83 Other fatigue; R00.0 Tachycardia, unspecified; J44.9 Chronic obstructive pulmonary disease, unspecified
CPT/HCPCS: 36415; 74177; 80053; 83690; 85025; 93005; 96361; 96374; 96375; 96376; 99285; J2270; J2405; J7030; Q9967

== ENCOUNTER → 2020-08-09 | Outpatient (CLI) | payer MEDICAID ==
[~2020-08-09] MED LIST changes: +ATOR20TA37 PO; +BACL20TA PO; +DOCU100C33 PO; -FOLI-17 PO; +FOLI1TAB32 PO; +METH-640 PO; -OXYC5TAB3 PO; +OXYC5TAB98 PO; +PARO40TA3 PO
== END | disposition home or self-care (01) ==
LOC: RAD 22:08
PROVIDERS: ATTEND Family Medicine
DX: M47.812 Spondylosis without myelopathy or radiculopathy, cervical region (principal); M19.012 Primary osteoarthritis, left shoulder; M25.78 Osteophyte, vertebrae
CPT/HCPCS: 72050

== ENCOUNTER 2020-11-29 13:08 | Emergency (ER) | payer SELFPAY ==
[~2020-11-29] VITALS: Ht 165.1 cm; Wt 62.0 kg
--- NOTE | 2020-11-29 13:50 | NUR ---
FIRST CONTACT: PT REPORTS GLF RESULTING IN PAIN TO Pam LYLES. PT ALSO EXPRESSES CONCERN OVER INCREASED SOB. PT TACHY CARDIC. PT TO ROOM ROOM WITH STEADY GAIT. ATTACHED TO MONITORS. CLARE. AWAITING ORDERS.
[2020-11-29 13:53] LABS: BASOPHILS % (AUTO) 1 % (0-1); EOSINOPHILS % (AUTO) 3 % (1-7); LYMPHOCYTES % (AUTO) 51 % (22-44); MEAN CORPUSCULAR HEMOGLOBIN 37.1 pg (27.0-34.8); MEAN CORPUSCULAR HGB CONC 34.4 g/dL (32.4-35.8); MEAN PLATELET VOLUME 7.6 fL (7.4-10.4); MONOCYTES % (AUTO) 10 % (2-9); NEUTROPHILS % (AUTO) 36 % (42-75); PLATELET COUNT 111 x10^3/uL (130-400); RED BLOOD COUNT 3.55 x10^6/uL (3.82-5.3); RED CELL DISTRIBUTION WIDTH 15.4 % (9.6-15.2)
[2020-11-29 14:00] LABS: ALANINE AMINOTRANSFERASE 35 U/L (12-78); ALBUMIN 3.6 g/dL (3.4-5.0); ANION GAP 12 mmol/L (5-15); CALCIUM 9.2 mg/dL (8.5-10.1); CHLORIDE 107 mmol/L (98-107)
[2020-11-29 14:02] LABS: ALKALINE PHOSPHATASE 84 U/L (45-117); BILIRUBIN,TOTAL 0.5 mg/dL (0.2-1.0); CREATININE 0.91 mg/dL (0.55-1.02); TOTAL PROTEIN 7.8 g/dL (6.4-8.2)
[2020-11-29 15:00] VITALS: BP 131/91
--- NOTE | 2020-11-29 15:05 | NUR ---
Patient given discharge instructions and they have confirmed that they understand the instructions. Patient ambulatory with steady gait. NAD, all questions answered appropriately, denies additional needs at this time. No personal belongings left in room after discharge.
== END 2020-11-29 15:16 | disposition home or self-care (01) ==
LOC: ED 13:30
DX: S40.012A Contusion of left shoulder, initial encounter (principal); R00.0 Tachycardia, unspecified; R07.9 Chest pain, unspecified; W18.30XA Fall on same level, unspecified, initial encounter; Y93.89 Activity, other specified; Y92.009 Unspecified place in unspecified non-institutional (private) residence as the place of occurrence of the external cause; Y99.8 Other external cause status
CPT/HCPCS: 36415; 71045; 80053; 85025; 93005; 99285